=== PATIENT | male | born 1970 | race Caucasian/White ===

== ENCOUNTER → 2021-12-18 | Emergency (ER) | payer BC ==
[~2021-12-18] VITALS: Ht 177.8 cm; Wt 88.5 kg
[~2021-12-18] MED LIST: LIPITOR 10 MG10 M1 PO; MEDROLDOSEPACK PO; METFORMIN HCL500 M3 PO; NORFLEX100 MG PO; TOPROL XL25 MG PO
[2021-12-18 17:38] VITALS: BP 140/86
== END ==
LOC: M.ERS 16:36
DX: M77.11 Lateral epicondylitis, right elbow (principal); Z79.899 Other long term (current) drug therapy